=== PATIENT | female | born 1990 | race Caucasian/White ===

== ENCOUNTER → 2022-12-22 | Outpatient (CLI) | payer OTHER, SELFPAY ==
[2022-12-22 12:00] LABS: Anion Gap 5 (5-15); BUN 15 mg/dL (7-18); Calcium,Total 9.2 mg/dL (8.5-10.1); Chloride 104 mmol/L (98-107); Creatinine, Serum 0.65 mg/dL (0.55-1.02); EST Glomerular Filtration Rate 112 mL/min (>60); Est Glom Filt Rate - Afr Amer 135 mL/min (>60); Glucose 99 mg/dL (74-106); Potassium 3.8 mmol/L (3.5-5.1); Sodium Level 136 mmol/L (136-145)
== END | disposition home or self-care (01) ==
LOC: LAB 11:00
PROVIDERS: PCP Nurse Practitioner Family; Referring Provider Internal Medicine Cardiovascular Disease; Visit Provider Internal Medicine Cardiovascular Disease
DX: R42 Dizziness and giddiness (principal); R07.9 Chest pain, unspecified; R06.02 Shortness of breath; R94.31 Abnormal electrocardiogram [ECG] [EKG]; R00.2 Palpitations; R53.82 Chronic fatigue, unspecified
CPT/HCPCS: 36415; 80048

== ENCOUNTER → 2023-01-08 | Outpatient (CLI) | payer SELFPAY, OTHER ==
--- NOTE | 2023-01-08 09:32 | ECHOD_ITS ---
Reason For Study: SOB/PALPS Procedure This was a 2D Doppler, Color Flow transthoracic echocardiogram. Exam performed in department. Left Ventricle Normal size and thickness. The left ventricular ejection fraction is 65 %. Normal diastology for age. Right Ventricle Normal right ventricle. Atria The left and right atria are normal. Mitral Valve Trivial mitral valve insufficiency. Tricuspid Valve Trivial tricuspid valve insufficiency. Unable to estimate RV systolic pressure due to insufficient tricuspid regurgitant envelope. Aortic Valve Normal aortic valve. Pulmonic Valve The pulmonic valve is not well visualized. Great Vessels Normal sized aortic root. Pericardium/Pleural No pericardial effusion. MMode/2D Measurements & Calculations LVIDd: 4.1 cm IVSd: 0.73 cm Ao root diam: 2.3 cm LVIDs: 2.7 cm LVPWd: 0.73 cm RVDd: 2.8 cm FS: 33.5 % LAV(MOD-bp): 22.2 ml LVAd ap4: 22.8 cm2 SV(MOD-sp4): 35.1 ml LAV(MOD-bp) Indexed: 16.4 ml/m2 LVLd ap4: 7.1 cm LAV(MOD-sp2): 25.3 ml EDV(MOD-sp4): 60.4 ml LAV(MOD-sp4): 20.0 ml EDV(sp4-el): 62.2 ml LVAs ap4: 12.4 cm2 LVLs ap4: 5.1 cm ESV(MOD-sp4): 25.3 ml ESV(sp4-el): 25.6 ml EF(MOD-sp4): 58.1 % EF(sp4-el): 58.7 % SV(sp4-el): 36.5 ml LA A4 area: 10.8 cm2 LA dimension(2D): 2.8 cm RA A4 area: 10.0 cm2 TAPSE: 1.5 cm Time Measurements MV dec time: 0.15 sec Doppler Measurements & Calculations MV E max kunal: 93.7 cm/sec Lat Peak E' Kunal: 22.8 cm/sec Med Peak E' Kunal: 16.1 cm/sec MV A max kunal: 68.0 cm/sec E/E' lat: 4.1 E/E' med: 5.8 MV E/A: 1.4 MV V2 max: 101.4 cm/sec Ao V2 max: 134.0 cm/sec MV max P.1 mmHg MV dec slope: 621.1 cm/sec2 Ao max P.2 mmHg MV V2 mean: 66.9 cm/sec Ao V2 mean: 98.1 cm/sec MV mean P.9 mmHg Ao mean P.3 mmHg MV V2 VTI: 29.3 cm Ao V2 VTI: 29.8 cm AV (velocity ratio): 0.70 LV V1 max: 103.2 cm/sec PA V2 max: 98.1 cm/sec LV V1 max P.3 mmHg PA V2 mean: 68.4 cm/sec LV V1 mean P.5 mmHg LV V1 mean: 74.9 cm/sec LV V1 VTI: 20.9 cm ECHO/Echo Complete Interpretation Summary The left ventricular ejection fraction is 65 %. Ordering Physician: Lala Handy Referring Physician: Lala Handy Performed By: Chitra Owens RCS
== END | disposition home or self-care (01) ==
PROVIDERS: PCP Nurse Practitioner Family; Referring Provider Internal Medicine Cardiovascular Disease; Visit Provider Internal Medicine Cardiovascular Disease
DX: R42 Dizziness and giddiness (principal); R07.9 Chest pain, unspecified; R06.02 Shortness of breath; R00.2 Palpitations; R53.82 Chronic fatigue, unspecified; R94.31 Abnormal electrocardiogram [ECG] [EKG]
CPT/HCPCS: 93225; 93226; 93306